=== PATIENT | male | born 1980 | race American Indian/Alaskan Native ===

== ENCOUNTER 2019-04-20 06:03 | Day surgery (SDC) | payer MEDICARE, OTHER ==
[2019-04-20] MEDS ORDERED: ASPIRIN EC 325 MG TAB PO NR (06:21)
[2019-04-20] MEDS ORDERED: SODIUM CHLORIDE 0.9% 500 ML 500 ML IV SCH (07:00)
[2019-04-20 07:04] LABS: Basophils # (Auto) 0.1 K/mm3 (0.0-0.1); Eosinophils # (Auto) 0.2 K/mm3 (0.0-0.4); Eosinophils % (Auto) 3.4 % (0.0-4.3); Hematocrit 41.8 % (35.5-45.6); Lymphocytes # (Auto) 2.3 K/mm3 (1.2-5.4); Lymphocytes % (Auto) 46.6 % (13.4-35.0); Mean Corpuscular HGB Conc 34 % (32-34); Mean Corpuscular Volume 101 fl (84-94); Monocytes # (Auto) 0.4 K/mm3 (0.0-0.8); Monocytes % (Auto) 8.3 % (0.0-7.3); Platelet Count 245 K/mm3 (140-440); Red Blood Count 4.14 M/mm3 (3.65-5.03); Red Cell Distribution Width 14.2 % (13.2-15.2)
[2019-04-20 07:13] LABS: BUN/Creatinine Ratio 15; Blood Urea Nitrogen 15 mg/dL (9-20); Calcium 8.6 mg/dL (8.4-10.2); Hemolysis Index 18
[2019-04-20] MEDS ORDERED: diazePAM 5 MG TAB PO PRN (07:14)
[2019-04-20 07:15] LABS: INR 0.98 (0.87-1.13); Partial Thromboplastin Time 23.8 Sec. (24.2-36.6)
[2019-04-20] MEDS ORDERED: LIDOCAINE (1%) 10 MG/1 ML VIAL 20 ML MDV INFILTRATI ONE ×2 (08:25→08:44)
[2019-04-20] MEDS ORDERED: MIDAZOLAM 2 MG/2 ML INJ IV ONE ×2 (08:44→09:23)
[2019-04-20] MEDS ORDERED: SODIUM CHLORIDE 0.9% IR ONE (08:44)
[2019-04-20] MEDS ORDERED: HEPARIN 10,000 UNITS/10 ML VIAL IV ONE ×2 (08:44→09:27)
[2019-04-20] MEDS ORDERED: NITROGLYCERIN 600 MCG/3 ML SYRINGE UD ONE ×2 (08:44→09:27)
[2019-04-20] MEDS ORDERED: VERAPAMIL 5 MG/2 ML INJ IV ONE ×2 (08:44→09:27)
[2019-04-20] MEDS ORDERED: HEPARIN IR ONE (08:44)
[2019-04-20] MEDS ORDERED: fentaNYL 100 MCG/2 ML INJ IV ONE ×2 (08:44→09:23)
--- NOTE | 2019-04-20 10:02 | Short Stay Summary ---
Short Stay Documentation Date of service: 04/20/19 - Allergies and Medications Current Medications: Allergies No Known Allergies Allergy (Unverified 04/20/19 06:00) Home Medications Medication Instructions Recorded Confirmed Last Taken Type Diltiazem HCl [Cardizem LA] 120 mg PO DAILY 04/20/19 04/20/19 04/19/19 History Active Medications Aspirin (Ecotrin) 325 mg PO ONCE NR Stop: 04/20/19 13:00 Last Admin: 04/20/19 06:40 Dose: 325 mg Documented by: Diazepam (Valium) 5 mg PO ONCE PRN PRN Reason: Anxiety Stop: 04/20/19 16:00 Last Admin: 04/20/19 07:22 Dose: 5 mg Documented by: Sodium Chloride (Nacl 0.9% 500 Ml) 500 mls @ 50 mls/hr IV DIRECT HEAVENLY Stop: 04/20/19 16:59 Last Admin: 04/20/19 07:15 Dose: 50 mls/hr Documented by: - Brief post op/procedure progress note Date of procedure: 04/20/19 Pre-op diagnosis: abnl stress Post-op diagnosis: other Procedure: normal coronaries and see report Anesthesia: local Estimated blood loss: none Pathology: none - Disposition Condition at discharge: Good Disposition: DC-01 TO HOME OR SELFCARE - Discharge Diagnoses (1) Tobacco abuse Status: Chronic (2) Hypertension Status: Chronic Qualifiers: Hypertension type: essential hypertension Qualified Code(s): I10 - Essential (primary) hypertension (3) Abnormal cardiovascular stress test Status: Resolved Short Stay Discharge Plan Activity: advance as tolerated Diet: low fat, low cholesterol Wound: open to air, keep clean and dry Follow up with: PRIMARY MD KARIME [Primary Care Provider] - 7 Days
[2019-04-20] MEDS ORDERED: traMADol 50 MG TAB PO PRN (10:30)
--- NOTE | 2019-04-20 11:20 | Cardiac Catherization Report ---
LEFT HEART CATHETERIZATION ORDERING PHYSICIAN: Dr. Narciso Marr. CLINICAL INFORMATION: A 38-year-old -[place] gentleman who is a smoker, hypertension, had paroxysmal AFib during stress test with mild inferior wall hypokinesis and drop in EF. He is here for a left heart catheterization. Procedure was done under moderate sedation. Total sedation, started at 9:23 a.m., finished at 9:38, 50 minutes of moderate sedation. Procedure was done via the right radial artery, sterile technique, local anesthesia, 6-Slovenian radial sheath inserted. Left system engaged with a JL3.5 catheter. Left main is large and patent, bifurcates into large LAD that is patent from proximally and distally. Small diagonals are patent. Circumflex is a large caliber vessel. AV groove, OM1, OM2 and OM3 are small to medium caliber vessel, patent. RCA engaged with JR4 catheter, is a medium to large caliber vessel that is patent. Small PDA, PLV are patent. LV gram done in [place] and [place] shows overall normal LV function, but on the [place] view, there is some borderline mild inferior wall hypokinesis. LVEDP at 20-25 mmHg, LV is 150. Aortic is 150/93. No gradient across the aortic valve on pullback. A 5-Slovenian catheters all taken over guidewire. A 6-[place]ovenian radial sheath was discontinued. Radial band applied. No hematoma, no bleeding. SUMMARY: Normal coronaries. Overall, normal LV function, a small inferior wall hypokinesis, treat medically. Risk factor modification. The patient tolerated the procedure well. JOB# [id number] ADONIS/DIONICIO
[2019-04-20 12:46] VITALS: BP 157/91
== END 2019-04-20 14:00 | disposition home or self-care (01) ==
LOC: CATHLABREC 06:03
PROVIDERS: ATTEND Internal Medicine
DX: R94.39 Abnormal result of other cardiovascular function study (principal); I10 Essential (primary) hypertension; I48.0 Paroxysmal atrial fibrillation; F17.210 Nicotine dependence, cigarettes, uncomplicated; Z79.899 Other long term (current) drug therapy
CPT/HCPCS: 36415; 80048; 85025; 85610; 85730; 93005; 93010; 93458; 99156; C1894; J1644; J2250; J3010; J7030; J7040; Q9967

== ENCOUNTER 2020-06-04 00:26 | Emergency (ER) | payer OTHER | END 2020-06-04 07:38 | LOC: ED 00:26 | DX: S05.31XA Ocular laceration without prolapse or loss of intraocular tissue, right eye, initial encounter (principal); Z53.21 Procedure and treatment not carried out due to patient leaving prior to being seen by health care provider; W22.03XA Walked into furniture, initial encounter; Y93.89 Activity, other specified; Y92.89 Other specified places as the place of occurrence of the external cause; Y99.8 Other external cause status ==